=== PATIENT | female | born 1995 ===

== ENCOUNTER 2017-05-05 23:06 | Inpatient (IN) | payer MEDICAID ==
[~2017-05-05] VITALS: Ht 152.4 cm; Wt 84.4 kg
[2017-05-05] MEDS ORDERED: Lactated Ringer's 1,000 ML IV PRN (23:37)
[2017-05-05] MEDS ORDERED: Methylergonovine 0.2 mg/mL Inj IM PRN (23:40)
[2017-05-05] MEDS ORDERED: Sodium Chloride LOK Flush 10 mL Syringe IVFLUSH PRN (23:40)
[2017-05-05] MEDS ORDERED: Oxytocin 30 Units/500 mL LR 30 UNITS in IV Premix 1 EACH IV PRN (23:40)
[2017-05-05] MEDS ORDERED: Carboprost 250 mCg/mL Inj IM PRN (23:40)
[2017-05-05] MEDS ORDERED: Ondansetron 2 mg/mL 2 mL Inj IVPUSH PRN (23:40)
[2017-05-05] MEDS ORDERED: Oxytocin 10 Unit/mL Inj IM PRN (23:40)
[2017-05-05] MEDS ORDERED: Hemorrhage Kit, Post Partum XX ONE (23:40)
[2017-05-05] MEDS ORDERED: fentaNYL-PF 50 mCg/mL 2 mL Inj IVPUSH PRN (23:40)
[2017-05-06 00:20] LABS: Mean Corpuscular Hemoglobin 24.8 pg (27.0-35.0); Mean Corpuscular Volume 75.9 fL (81-100)
[2017-05-06] MEDS ORDERED: Oxytocin 30 Units/500 mL LR 30 UNITS in IV Premix 1 EACH IV SCH (02:45)
[2017-05-06] MEDS ORDERED: Lactated Ringer's 1,000 ML IV SCH (05:50)
[2017-05-06] MEDS ORDERED: Atropine 1 mg/10 mL (Code) Syringe IVPUSH PRN (05:50)
[2017-05-06] MEDS ORDERED: fentaNYL 2 mCg/mL-Bupiv 0.125% 100 ML EPIDURAL SCH (05:50)
[2017-05-06] MEDS ORDERED: Ondansetron 2 mg/mL 2 mL Inj IVPUSH PRN (05:50)
[2017-05-06] MEDS ORDERED: Lactated Ringer's 500 ML IV ONE (05:50)
[2017-05-06] MEDS ORDERED: EPHEDrine Sulfate 50 mg/mL Inj IVPUSH PRN (05:50)
--- NOTE | 2017-05-06 06:20 | PCM.HPANE ---
Patient Data Date of Service: May 06, 2017 Surgeon Admitting Provider:Vipul Ortiz MD Attending Provider:Vipul Ortiz MD Primary Care Physician:Riya Other Provider:Fortino Quiroz Anesthesia Reason for Visit Term Labor Check TERM LABOR CHECK Ht/WT & BMI Height (Centimeters): 152 Weight (Kilograms): 84 Body Mass Index Allergies Coded Allergies: No Known Allergies (Unverified , 05/05/17) Past Anesthesia History Anesthesia History: Denies:: Abnormal Airway, Anesthesia Reactions, Difficult Intubation, Fam Anesthesia Reaction, Fam Malignant Hypertherm, Malignant Hyperthermia Diabetes History Hx Diabetes?: No Medications Hypertension Medication: No Home Meds Incl Beta Huber: No History History of ENT Problems?: No HEENT History: Denies:: Abnormal Airway Cataracts Difficult Intubation Dysphagia Glaucoma Hearing Problem Sinus Problem TMJ Denture Type: None Teeth Condition: Within Normal Limits Hx of Heart Problems?: No Cardiovascular History: Denies:: AICD Abdominal Aortic Aneurism Atrial Fibrillation Cardiac Surgery Chest Pain Congestive Heart Failure Coronary Artery Disease Edema Heart Murmur Hypertension Irregular Heartbeat Pacemaker Peripheral Vascular Rheumatic Fever Thrombophlebitis Valvular Heart Disease Hx of Respiratory Problem?: Yes Respiratory History: Positive for:: Asthma Hx Neurologic Problems?: No Hx of GI Problems?: No Hx of Problems?: No Female Hx: Positive for:: Currently Hx Musculoskeletal Problems?: No Hx Surgeries?: No Smoking Status: Never Smoker Stop/Bang Risk Assessment Category Category 1A: Patient has history of documented sleep apnea, and HAS NOT received any narcotic, sedative or anesthesia administration during this stay. Category 1B: Patient has history of documented sleep apnea, and HAS received any narcotic , sedative or anesthesia administration during this stay Category 2: Patient has SUSPECTED Obstructive Sleep Apnea, and HAS received any narcotic , sedative or anesthesia administration during this stay. Category 3: Patient has SUSPECTED Obstructive Sleep Apnea and HAS NOT received narcotic, sedative or anesthesia administration during this stay. Category 4: Outpatient in Procedural Areas with known sleep apnea or who screen positive for High Risk via the STOP/BANG questionnaire. Exam Exam General Appearance: Alert, Oriented X3, Cooperative, Moderate Distress HEENT/AIRWAY: MP 2 Lungs: Normal Air Movement Heart: Exam Unremarkable Meds/Labs/Diagnostics Labs Test 05/05/17 23:20 05/06/17 00:00 Hold Urine Received (Received) Urine Opiates Screen Negative Urine Methadone Screen Negative Urine Barbiturates Screen Negative Urine Amphetamines Screen Negative Urine Benzodiazepines Screen Negative Urine Cocaine Metabolite Screen Negative Urine Cannabinoids Screen Positive White Blood Count 15.3th/mm3 (3.8-10.1) Red Blood Count 4.19mil/mm3 (3.90-5.20) Hemoglobin 10.4g/dL (12.0-15.6) Hematocrit 31.8% (35.0-46.0) Mean Corpuscular Volume 75.9fL (81-100) Mean Corpuscular Hemoglobin 24.8pg (27.0-35.0) Mean Corpuscular Hemoglobin Concent 32.7% (32.0-37.0) Red Cell Distribution Width 13.4% (12.3-15.4) Platelet Count 328bil/L (150-400) Plan Impression Patient chart reviewed, patient interviewed and anesthestic plan with risks, benefits, and alternatives discussed, and informed consent obtained. NPO per Anesth. Guidelines: Yes ASA Physical Status: ASA2 Mod Systemic Disease Anesthetic Plan: Epidural Bene/Risks/Altern/Consents: Yes HP Complete Prior to Induction: Yes Toni Sagastume MD May 06, 2017 05:50
[2017-05-06] MEDS ORDERED: Oxytocin 30 Units/500 mL LR Premix IV ONE (07:18)
[2017-05-06] MEDS ORDERED: Witch Hazel-Glycerin Pads TOPICAL PRN (08:15)
[2017-05-06] MEDS ORDERED: Benzocaine (Dermoplast) 20% 60 Gm Spray TOPICAL PRN (08:15)
[2017-05-06] MEDS ORDERED: Carboprost 250 mCg/mL Inj IM PRN (08:15)
[2017-05-06] MEDS ORDERED: Methylergonovine 0.2 mg/mL Inj IM PRN (08:15)
[2017-05-06] MEDS ORDERED: Measles-Mumps-Rubella Vaccine 0.5 mL Inj SUBQ ONE (08:15)
[2017-05-06] MEDS ORDERED: Oxytocin 30 Units/500 mL LR 30 UNITS in IV Premix 1 EACH IV PRN (08:15)
[2017-05-06] MEDS ORDERED: Oxytocin 10 Unit/mL Inj IM PRN (08:15)
[2017-05-06] MEDS ORDERED: Hemorrhage Kit, Post Partum XX ONE (08:15)
[2017-05-06] MEDS ORDERED: LANOlin HPA 7 Gm Ointment TOPICAL PRN (08:15)
--- NOTE | 2017-05-06 08:23 | PCM.ANEP1 ---
Post Anesthesia PACU Phase 1 Assessment Vital Signs VS per RN Anesthetic Administered: Epidural Level of Alertness: Awake, talking CRUZ's with Equal Strength: Yes Pain: No Nausea or Vomiting: No CV Function & Hydration Stable: Yes Airway Device: Oxygen Delivery: Room Air Lungs: Normal Air Movement PACU Phase 2 Assessment Complications: No Follow up Care: N/A Patient Instructions Provided: N/A Hammad Eagle MD May 06, 2017 08:23
[2017-05-06] MEDS ORDERED: Sodium Chloride LOK Flush 10 mL Syringe IVFLUSH SCH (08:30)
--- NOTE | 2017-05-06 10:08 | HP ---
[address] [address] HISTORY AND PHYSICAL PATIENT: DAVID HYATT : 1995 MR#: [id number] ADMIT: 05/05/2017 JOB ID: [id number] DATE OF SERVICE: 05/06/2017 CHIEF COMPLAINT: Rupture of membranes at term. HISTORY OF PRESENT ILLNESS: A 22-year-old, either 2, para 1 or 1, para 0 (history is fairly confusing, please see details below) presents with spontaneous rupture of membranes a little before midnight last night. She was found, by nursing, to be 2 cm dilation with contractions that spaced out after ambulating. She received oxytocin augmentation and then became more uncomfortable. I was called this morning a little after 7 when she was found to be complete +2 station and a strong urge to push. She currently has an epidural. She has family/friends with her. Patient's care was through Dr. Lucio Pizano in [place]. Initially she was labeled as a 1, para zero, but later through the care told him about a delivery in 2009 in another facility, a 7 pounds 9 ounce in [place] who at age 4 due to congenital heart issues. We have not been able to get medical records of this prior delivery, this would make her age 14 or 15 at the time of that delivery. Current has been complicated by poly-substance abuse with a history of cocaine, methamphetamine, heroin, and marijuana use. The patient reported to her physician that she stopped methamphetamine and heroin when she found out she was . Her drug screen in October was positive for norfentanyl, marijuana, and morphine. A retest in February of this year was positive only for marijuana and her test when admitted here is positive for marijuana only. Patient also has a history of bipolar disorder, was on lithium stopped that at age 20. Has a history of suicide attempt with overdosing on Tylenol in July 2015. Chart notes also mention a history of rheumatoid arthritis as a child, details unavailable. Also has a history of chlamydia, treated. Chart notes mention asthma with rare albuterol use. CURRENT MEDICATIONS: Unobtainable as patient is actively pushing. ALLERGIES: None known. SOCIAL HISTORY: Detailed largely above. Outside notes mention that she is . LABORATORIES: Her initial hematocrit was 38.7, MCV 86, blood type O-positive, antibody screen negative, rubella not immune. Hepatitis B surface antigen negative. Treponemal IgG negative/nonreactive. Hepatitis C negative. HIV test negative. A1c at the beginning of was 4.7. Urinalysis read as normal. Gonorrhea and Chlamydia cultures were negative in November of this year and a 28-week glucose tolerance test, 1 hour was 119. An ultrasound at 19 weeks 3 days gave an EDC of 05/25/2017. No placenta previa and good interval growth. ASSESSMENT: 1. Gravid at term. 2. History of poly-substance abuse. 3. Question of whether she is 2, para 1 or 1, para zero. History from patient is inconsistent, and we do not have records of a reported 2009 delivery. 4. Question of a prior child with a congenital heart defect. A heart ultrasound this mentions no congenital heart disease identified. 5. History of bipolar disorder. 6. Anemia noted on admission with a hematocrit of 31. 7. Question of unstable/unknown social situation. PLAN: Patient went on to deliver as per my subsequent delivery note. social services specialist is consulted. TRISTEN
--- NOTE | 2017-05-06 10:12 | OP ---
[address] [address] OPERATIVE REPORT PATIENT: DAVID HYATT : 1995 MR#: [id number] ADMIT: 05/05/2017 JOB ID: [id number] DELIVERY NOTE DELIVERY POSITION: ANNEMARIE rotating to MOHAN. DELIVERY WEIGHT: 7 pounds 9 ounces. ESTIMATED BLOOD LOSS: 150 cc. APGARS: Pending, but good tone, cry, and color. UMBILICAL CORD: 3-vessel cord normal length and appearance. PLACENTA: Central cord insertion, normal appearance. LACERATIONS:Bilateral shallow labial abrasions, repaired. ANESTHESIA: Epidural along with 1% lidocaine for repair. COMPLICATIONS: None. The patient was found to be complete with a strong urge to push. When I arrived the head was at +2 station. The patient pushed for about 20-30 minutes bringing the head down in ANNEMARIE position quickly rotating to MOHAN position. No nuchal cord was identified. Shoulders and body delivered easily and there was no shoulder dystocia. initially was not making a lot of respiratory effort in the first 15 seconds. The cord was cut and clamped anticipating transferred to the warmer, however then infant promptly cried vigorously. Cord blood was collected and sent. Perineum inspected and showed bilateral shallow labial abrasions, repaired with running 3-0 Vicryl after instilling lidocaine for additional anesthesia. Placenta then delivered spontaneously with gentle traction on the cord. Bleeding is slowing after delivery and patient was stable. Sponge and needle counts were correct after delivery. A rectal exam after delivery showed intact sphincter tone. [facility]
[2017-05-06] MEDS: Ascorbic Acid 500 mg Tablet PO SCH (20:01)
[2017-05-07 07:30] LABS: Mean Corpuscular Hemoglobin 24.4 pg (27.0-35.0); Mean Corpuscular Volume 77.2 fL (81-100)
[2017-05-07] MEDS: HYDROcodone-APAP 5-325 mg Tablet PO PRN ×2 (07:58→20:45)
[2017-05-07] MEDS: Ascorbic Acid 500 mg Tablet PO SCH ×2 (08:00→17:41)
[2017-05-07] MEDS: Lactated Ringer's 1,000 ML IV SCH ×2 (10:09→16:14)
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
[2017-05-08] MEDS: Lactated Ringer's 1,000 ML IV SCH (00:14)
[2017-05-08] MEDS: HYDROcodone-APAP 5-325 mg Tablet PO PRN ×3 (00:34→08:51)
[2017-05-08] MEDS: Ascorbic Acid 500 mg Tablet PO SCH (08:50)
--- NOTE | 2017-05-08 10:09 | PCM.DIOB ---
Obstetrical Disch Instruction Date of Service: May 08, 2017 Dates of Hospitalization Date of Hospital Admission May 05, 2017 at 23:33 Providers Admitting Physician: Vipul Ortiz MD Primary Care Physician: Nopcp Attending Physician: Vipul Ortiz MD Discharge Diagnosis Problems: (1) Encounter for full-term uncomplicated delivery Status: Acute ICD Code: O80 Diet Discharge Diet: No restrictions Activity Discharge Activity-General: Pelvic Rest for 6 weeks, Balance rest and activity Dressing and Incisional Care Hygiene: May shower Follow Up [facility] appointment: Weeks (6) Call your provider for: Fever or Chills, Shortness of breath, Heavy vaginal bleeding, Excessive constipation, Red painful breasts Vipul Ortiz MD May 08, 2017 10:09
[2017-05-08] MEDS ORDERED: IBUP800T28 PO (10:11)
[2017-05-08] MEDS ORDERED: DOCU-41 PO (10:11)
[2017-05-08] MEDS ORDERED: HYDR-4003 PO (10:11)
[2017-05-08] MEDS ORDERED: FERR-74 PO (10:11)
[2017-05-08 10:31] VITALS: BP 111/65; PULSE 90; RESP 18
--- NOTE | 2017-05-08 10:48 | DIS ---
[address] [address] DISCHARGE SUMMARY PATIENT: DAVID HYATT : 1995 MR#: [id number] ADMIT: 05/05/2017 JOB ID: [id number] DIS: DISCHARGE DIAGNOSES: 1. Spontaneous vaginal delivery to a 7 pound 9 ounce at term. 2. Bilateral labial abrasions, repaired. 3. Marijuana use. 4. History of polysubstance abuse, current drug screen only positive for marijuana. 5. History of bipolar disorder, reactive airway disease, and anemia. 6. Uncertain parity. At present, it appears she is a 1, para 1 but for several nursing staff and for Dr. Lucio Pizano, she mentioned a prior in 2009. History from patient has been inconsistent. DISCHARGE MEDICATIONS: 1. Ibuprofen 600 mg q.6 h. p.r.n. pain. 2. Hydrocodone/acetaminophen 5/325 mg 1-2 tablets q.4 h. p.r.n. pain, #10, with no refills. 3. Docusate sodium 100 mg p.o. b.i.d. p.r.n. constipation. 4. vitamins 1 tablet daily. DISCHARGE INSTRUCTIONS: 1. Pelvic rest for six weeks. 2. The patient was planning Depo-Provera at discharge but now wants to hold off until she sees Dr. Lucio Pizano. 3. Follow up with Dr. Pizano at six weeks, sooner if fevers, bleeding that is excessive, painful breasts, excess constipation, etc. HOSPITAL COURSE: The patient is a now 1, para 1, who presents at term with spontaneous rupture of membranes. Because her contraction pattern was spacing out, oxytocin augmentation was added. She went on to have an uncomplicated vaginal delivery to a 7 pound 9 ounce infant. The patient gave staff a history of a prior seven years ago but records were not obtainable and on questioning with Social Work, she did not report a prior but noted it was infant of the father of the baby. Tours Captain was consulted due to her history of substance abuse, as well as court involvement. CPS referral is pending for the prior to discharge. The patient will follow up with Dr. Pizano in six weeks, sooner if problems. [facility]
== END 2017-05-08 16:24 | disposition home or self-care (01) | DRG 775 ==
LOC: FBCO 23:06 → FBC 23:33
PROVIDERS: ADMIT Family Medicine; ATTEND Family Medicine
PROC: 10E0XZZ Delivery of Products of Conception, External Approach (ICD-10-PCS; principal; 2017-05-06)
PROC: 0HQ9XZZ Repair Perineum Skin, External Approach (ICD-10-PCS; 2017-05-06)
DX: O99.324 Drug use complicating childbirth (principal); F12.90 Cannabis use, unspecified, uncomplicated; O99.02 Anemia complicating childbirth; D64.9 Anemia, unspecified; O70.0 First degree perineal laceration during delivery; Z3A.38 38 weeks gestation of pregnancy; Z37.0 Single live birth

== ENCOUNTER 2017-05-13 14:52 | Emergency (ER) | payer MEDICAID ==
[~2017-05-13] VITALS: Ht 152.4 cm; Wt 79.1 kg
[~2017-05-13 14:52] MED LIST: DOCU-41 PO; FERR-74 PO; HYDR-4003 PO; IBUP800T28 PO
[2017-05-13 15:10] VITALS: BP 122/75; PULSE 93; RESP 14; O2SAT 97
--- NOTE | 2017-05-13 15:52 | ED.REPORT ---
HPI- Female Date of Service May 13, 2017 ED Provider: Dr. Mae Pt is a 22 year old female presenting to the ED 7 days complaining of increased vaginal bleeding. She also complains of cramps, lightheadedness and chills. Denies any other symptoms at this time. She has changed her pad 3 times in the last hour. Nursing Notes Stated Complaint: MORE PAIN & BLEEDING AFTER DELIVERY OF BABY Chief Complaint: General Complaint Nursing Notes Reviewed: Yes Allergies: Coded Allergies: No Known Allergies (Unverified , 05/05/17) Scheduled Amoxicillin (Amoxil) 500 Mg Capsule 500 MG PO TID Ferrous Sulfate (Feosol) 325 Mg Tablet 325 MG PO BIDWM Metronidazole (Flagyl) 500 Mg Tablet 500 MG PO Q8H Scheduled PRN Docusate Sodium (Colace) 100 Mg Capsule 100 MG PO BID PRN PRN For Constipation Hydrocodone-Acetaminophen 5-325 mg (Hydrocodone-Acetaminophen 5-325 mg) 1 Each Tablet 1-2 TABLET PO Q4H PRN PRN For Pain Ibuprofen (Ibuprofen) 800 Mg Tablet 800 MG PO Q6H PRN PRN For Pain General Time Seen by MD: 15:51 Chief Complaint Other (Vaginal bleeding) Hx Obtained From: Patient Arrived By: Walk-in Sudden in Onset?: No Onset Occurred: 1 week ago Symptom Duration: Since onset Quality: Cramping Severity: Current: Moderate Severity: Maximum: Moderate Recent Healthcare: Recent doctor visit, Recent hospitalization Similar Sx Previous: No Past Medical History Past Medical History 7 days post , vaginal delivery Denies: Diabetes mellitus, Hypertension Past Surgical History denies Smoking History Never Smoker Social History Alcohol Use: Denies alcohol use Drug Use: Denies drug use Ambulatory Status Independent Review of Systems Constitutional: Denies: Weakness - generalized GI: Reports: Abdominal pain, Denies: Vomiting Female: Reports: Vaginal bleeding - abnl Complete sys rev & neg: except as marked. Respiratory: Denies: Shortness of breath Cardiovascular: Denies: Chest pain Physical Exam Initial Vital Signs Vital Signs (First) Date Time Temp Pulse Resp B/P Pulse Ox O2 Delivery O2 Flow Rate FiO2 05/13/17 15:10 37.3 93 14 122/75 97 Room Air Initial VS: Reviewed Head / Eyes: Atraumatic, Normocephalic, PERRL ENT: Mucous membranes moist, Conjunctiva normal, No scleral icterus Respiratory: Breath sounds normal, Clear to auscultation, No respiratory distress Cardiovascular: Regular rate & rhythm, Heart sounds normal, Intact distal pulses Extremities: Vascular intact, Neuro intact, No swelling, No tenderness Skin: Warm, Dry, No cyanosis Neurologic: Alert, Oriented, Nonfocal Psychiatric: Mood/affect normal, Behavior normal, Normal thought content Female Genitourinary: Chain Builder Loom Control present, Atraumatic, External genitalia NL Scant bloody discharge General/Constitutional: Awake, Alert Appearance / Presentation: Positive: Pale Abdomen: Soft, Non-tender Uterus below umbilicus. Interpretation & Diagnostics Lab Results Interpretation Result Diagram: 05/13/17 1607 05/13/17 1607 Test 05/13/17 16:07 White Blood Count 13.3th/mm3 (3.8-10.1) Red Blood Count 4.26mil/mm3 (3.90-5.20) Hemoglobin 10.3g/dL (12.0-15.6) Hematocrit 32.9% (35.0-46.0) Mean Corpuscular Volume 77.2fL (81-100) Mean Corpuscular Hemoglobin 24.2pg (27.0-35.0) Mean Corpuscular Hemoglobin Concent 31.3% (32.0-37.0) Red Cell Distribution Width 14.7% (12.3-15.4) Platelet Count 435bil/L (150-400) Sodium Level 137mEq/L (134-144) Potassium Level 3.9mEq/L (3.5-5.2) Chloride Level 100mEq/L (97-108) Carbon Dioxide Level 21mmol/L (18-29) Blood Urea Nitrogen 8mg/dL (6-20) Creatinine 0.51mg/dL (0.57-1.00) Estimat Glomerular Filtration Rate 220mL/min (>59) Glucose Level 87mg/dL (60-99) Calcium Level 9.3mg/dL (8.5-10.1) Total Bilirubin 0.2mg/dL (0.0-1.2) Aspartate Amino Transf (AST/SGOT) 14U/L (0-50) Alanine Aminotransferase (ALT/SGPT) 13U/L (0-32) Alkaline Phosphatase 104U/L (25-150) Total Protein 7.2g/dL (6.4-8.4) Albumin 3.3g/dL (3.4-5.0) Hold Anders Top Tube Received (Received) US Focused OB IMPRESSION: 1. Slight appearance of heteroechogenicity within the endocervical canal, overall nonspecific. This could be related to mild hemorrhage or debris. Recommend follow up ultrasound as clinically indicated. Dictated by: Martha Reis M.D. on 05/13/2017 at 18:08 Exam Performed by: Radiologist Exam Interpreted by: Radiologist Re-Eval/Medical Decision Med Decision/Clinical Course No evidence of clinically significant hemorrhage, afebrile white count is down trending hemoglobin is up trending, the patient does have tenderness on pelvic exam with scant amount of blood. Unclear whether this represents endometritis and it seems unlikely however after discussion with on-call CITY PLANNING TEACHER it was felt that we should start this patient on amoxicillin and Flagyl and have her follow very closely with her primary CITY PLANNING TEACHER in [place]. She is given the initial dose of antibiotics in the ER. Return in follow-up precautions are given. Re-Evaluation/Progress : Time of Eval: 17:46 Patient Status: Condition improved Re-Evaluation/Progress Note: Performed pelvic exam. Consultation : Referral / Consult Name: Vipul Ortiz MD Call Returned at: 17:57 Note: OB: Start antibiotics and follow up with her OBGYN in the morning. Amox and Met 500 TID. Counseled Regarding: Diagnosis, Lab results, Need for follow-up, When/why to return to ED Discharge & Departure Impression: Primary Impression: bleeding hemorrhage type: unspecified Qualified Code: O72.1 - Other immediate hemorrhage Disposition: Home Discharge Condition All VS Reviewed: Yes Condition: Improved Additional Instructions: Your ultrasound today was reassuring. Start taking the antibiotics as prescribed and follow up with your OBGYN tomorrow morning. Return to the ER if you develop any new or worsening symptoms such as fever, vomiting, severe headache, or worsened vaginal bleeding. Referrals: [facility] Scribe Attestation Portions of this note were transcribed by Shayy Guan. I, Dr. Mae personally performed the history, physical exam and medical decision-making; I reviewed and confirmed the accuracy of the information in the transcribed note. Signed by: Mitzi Malloy, 05/13/17 at 1814. copies to: [facility] Suhail Mae DO May 13, 2017 15:52 SHAYY GUAN May 13, 2017 16:04
[2017-05-13] MEDS ORDERED: 0.9% Sodium Chloride 1,000 ML IV ONE (15:55)
[2017-05-13 16:29] LABS: Mean Corpuscular Hemoglobin 24.2 pg (27.0-35.0); Mean Corpuscular Volume 77.2 fL (81-100)
[2017-05-13 17:58] VITALS: BP 121/56; PULSE 72; RESP 20; O2SAT 98
[2017-05-13] MEDS ORDERED: METR500T PO (18:12)
[2017-05-13] MEDS ORDERED: AMOX500C2 PO (18:12)
--- NOTE | 2017-05-13 18:12 | DRSVH ---
PROCEDURE: US PELVIC SONOGRAM + TRANSVAGINAL SONOGRAM INDICATIONS: bleeding TECHNIQUE: Real-time scanning was performed of the pelvic organs, with image documentation. Additional endovagi nal scanning was necessary due to incomplete visualization of the adnexal and endometrial structures by transabdominal scanning. COMPARISON: None. FINDINGS: (orthogonal measurements) Uterus size: 15.33 cm, 5.26 cm, 9.29 cm Endometrium thickness: 1.08 cm Right ovary size: 2.9 x 1.9 x 1.5 cm Left ovary size: 3.59 cm, 1.71 cm, 1.78 cm Transabdominal scanning: Limited scanning through the kidneys shows no hydronephrosis. No pathologi c free abdominal or pelvic fluid. Endovaginal scanning: Uterus: Uterus is normal in size. Endometrium is within normal physiologic limits in size. There is a slight appearance of heteroechogenicity within the endocervical canal. Ovaries: Within normal physiologic limits. IMPRESSION: 1. Slight appearance of heteroechogenicity within the endocervical canal, overall nonspecific. This could be related to mild hemorrhage or debris. Recommend follow up ultrasound as clinically indicated . Dictated by: Martha Reis M.D. on 05/13/2017 at 18:08 Approved by: Martha Reis M.D. on 05/13/2017 at 18:10
== END 2017-05-13 18:26 | disposition home or self-care (01) ==
LOC: SED 14:52
DX: O72.1 Other immediate postpartum hemorrhage (principal); R42 Dizziness and giddiness; R68.83 Chills (without fever)
CPT/HCPCS: 36415; 76830; 76856; 80053; 85027; 86850; 96360; 99285; J7030